=== PATIENT | female | born 1995 | race Caucasian/White ===

== ENCOUNTER → 2017-01-08 | Outpatient (CLI) | payer OTHER ==
[2017-01-11 14:08] LABS: CHLAMYDIA TRACH RNA*** NOT DETECTED (NOT DETECTED); GC (NEIS GONORRHOEAE)RNA** NOT DETECTED (NOT DETECTED)
== END | disposition home or self-care (01) ==
LOC: C.LABBFT 11:37
PROVIDERS: ATTEND Nurse Practitioner
DX: Z00.00 Encounter for general adult medical examination without abnormal findings (principal)

== ENCOUNTER 2017-01-30 11:44 | Emergency (ER) | payer OTHER ==
[~2017-01-30] VITALS: Ht 154.9 cm; Wt 59.1 kg
[2017-01-30 11:49] VITALS: TEMP 36.6; Ht 154.9 cm; Wt 59.1 kg
--- NOTE | 2017-01-30 13:05 | DIAGNOSTIC IMAGING REPORT ---
RIGHT TIBIA/FIBULA 2 VIEWS ROUTINE CLINICAL HISTORY: Right lower leg pain status post trauma COMPARISON: None. DISCUSSION: No fractures or dislocations are visualized. IMPRESSION: No fractures identified. Electronically signed by: Maxwell Daley M.D. 01/30/2017 1:03 PM Dictated Date/Time: 01/30/2017 1:03 PM
--- NOTE | 2017-01-30 13:05 | DIAGNOSTIC IMAGING REPORT ---
RIGHT KNEE 3 VIEWS CLINICAL HISTORY: fall x1 wk; R knee, lower leg, foot pain Right trauma. Pain. COMPARISON: None. DISCUSSION: The bones and joint spaces appear intact. There is no evidence of fracture, dislocation or bony disease. There is no evidence for soft tissue swelling. IMPRESSION: Negative study. The above report was generated using voice recognition software. It may contain grammatical, syntax or spelling errors. Electronically signed by: Bc Ortez M.D. 01/30/2017 1:03 PM Dictated Date/Time: 01/30/2017 1:03 PM
--- NOTE | 2017-01-30 13:06 | DIAGNOSTIC IMAGING REPORT ---
RIGHT FOOT MIN 3 VIEWS ROUTINE CLINICAL HISTORY: 21 years-old Female presenting with fall x1 wk; R knee, lower leg, foot pain Right. TECHNIQUE: Frontal, oblique, and lateral views of the right foot were obtained. COMPARISON: None. FINDINGS: No acute fracture or malalignment. No significant degenerative change. No radiopaque foreign body. Regional soft tissues grossly normal. IMPRESSION: No acute osseous injury of the right foot. Electronically signed by: Giuseppe Chambers M.D. 01/30/2017 1:04 PM Dictated Date/Time: 01/30/2017 1:03 PM
[2017-01-30 13:41] VITALS: BP 125/73; PULSE 68; O2SAT 100
--- NOTE | 2017-01-31 16:21 | EMERGENCY ROOM VISIT NOTE ---
ED Visit Note First contact with patient: 11:54 Chief Complaint: Right knee and lower leg pain. History of Present Illness: Ms. Perales is a 21-year-old white female who ambulates into the ED complaining of right knee pain and right lower leg pain over the lateral aspect. Patient reports approximately one week ago she was walking down her apartments fire escape after at range. She reports that she slipped and fell down 28 stairs injuring her leg when it was trapped between 2 steps. She reports at the time of the fall she was not having any lightheaded or dizziness, she had no loss of consciousness and since the fall she has had no signs of head injury. Currently she is complaining of pain over the lateral aspect of the knee, lower leg and ankle. She describes her pain as a combination of pressure and sharp sensation. She rates her discomfort 5/10 at rest and 7/10 with movement of the knee and weightbearing. She has not identified any alleviating factors related to the pain. She reports that she has been using ibuprofen, heat and ice without relief of her discomfort. Associated with her pain she has noted bruising and swelling over the lateral aspect of the leg and knee. She denies neck pain, back pain, abdominal pain, nausea, vomiting, leg weakness/ numbness/tingling. Additionally he denies any previous significant injuries or surgeries to the right lower leg. Review of Systems: As noted above in history of present illness. 8 body systems were reviewed and found to be negative as noted above. Past Medical History: Patient denies. Current Medications: Patient denies. Allergies to Medications: Amoxicillin. Social History: Patient is currently University student; she feels safe in her home environment; she denies tobacco and alcohol use. Physical Examination: Vital Signs: Date Time Temp Pulse Resp B/P (MAP) Pulse Ox O2 Delivery O2 Flow Rate FiO2 01/30/17 13:41 68 125/73 100 Room Air 01/30/17 11:49 36.6 90 20 151/84 99 Room Air GENERAL: 21-year-old female in mild distress due to pain, nontoxic-appearing, afebrile and hemodynamically stable. NEUROLOGICAL: Awake, alert and oriented to person, place and time. Answering questions appropriately and following commands. Normal gait. Good hand eye coordination. No focal motor or sensory deficits. Cranial nerves II through XII grossly intact. Romberg test negative. Pronator drift test negative. Good short-term and long-term recall. SKIN: Warm, dry and pink. No open soft tissue trauma noted. HEENT: Atraumatic and normocephalic. PERRLA. Sclera white and conjunctiva pink. Speech normal. Trachea midline. No jugular venous distention. BACK: No tenderness over the bony cervical, thoracic and lumbar spine. Full range of motion of the cervical spine. No CVA tenderness. THORAX: Lungs sounds are clear to auscultation and equal bilaterally with symmetrical chest wall. No crepitus, tenderness, subcutaneous air or deformities noted. ABDOMEN: Flat, soft and nontender. Positive bowel sounds in all quadrants. No guarding, rigidity or organomegaly. RIGHT LOWER EXTREMITY: No gross bony deformity. No shortening or malrotation. Starting just superior to the knee and extending down into the mid lower leg patient has a large area that is ecchymotic and mildly swollen. This area is tender to palpation. I do not appreciate any bony deformity or crepitus. No specific tenderness over the lateral joint line. No laxity of the collateral or cruciate ligaments. Decreased range of motion in the knee due to pain. Negative ballottement test. Negative patellar apprehension test. No tenderness to the calf muscles. No tenderness over the anterior tibia and fibula. Full range of motion in plantar flexion and dorsiflexion of the ankle. Do not appreciate any ligamentous laxity of the ankle. There is some mild tenderness over the lateral foot with some mild swelling but no ecchymosis. Throughout the foot was not able to appreciate any bony deformity or crepitus. She was able to toes without difficulty. Throughout the foot the skin was warm and pink and capillary refill is brisk. She is able to distinguish light sensations through all dermatomes of the foot. ED Course: Patient is assessed as noted above. Patient's medication list was reviewed. Patient was offered pain medications and refused. Right Knee X-Rays: Were read by myself and the radiologist showing no acute fractures or dislocations. No evidence of significant soft tissue swelling or joint effusion. Right Tibia/Fibular X-Rays: Were read by myself and the radiologist showing no fractures. Right Foot X-Rays: Were read by myself and the radiologist showing no acute fractures or dislocations. Patient was placed in a knee immobilizer and nonweightbearing crutches. Patient was educated about today's findings and instructed on her treatment plan ; she verbalizes understanding and agreement with this plan. Clinical Impression: Right lower leg contusion. Right knee and foot pain. Status post fall. Disposition: Patient discharged home in stable condition; prior to departure she was reassessed and subjectively reported she was feeling better and rated her discomfort 3/10. Plan: Comfort measures were discussed with the patient including rest, ice, alternating ibuprofen and acetaminophen. Patient was encouraged to follow-up with 13 physician or assistive technology trainer for instructions back to sports activity. Patient is encouraged return ED for worsening/uncontrolled pain, uncontrolled swelling, leg/foot weakness/numbness/tingling or any new/concerning symptoms.
== END 2017-01-30 14:09 | disposition home or self-care (01) ==
LOC: C.EDB 11:45 → C.EDD 14:09
DX: S80.11XA Contusion of right lower leg, initial encounter (principal); M25.561 Pain in right knee; M79.604 Pain in right leg; M79.671 Pain in right foot; W10.9XXA Fall (on) (from) unspecified stairs and steps, initial encounter

== ENCOUNTER 2017-05-23 23:11 | Emergency (ER) | payer OTHER ==
[~2017-05-23] VITALS: Ht 154.9 cm; Wt 58.9 kg
[2017-05-23 23:20] VITALS: Ht 154.9 cm; Wt 58.9 kg
[2017-05-23] MEDS ORDERED: IBUPROFEN 600 MG TAB PO STA (23:27)
[2017-05-23] MEDS ORDERED: PHEN-876 PO (23:30)
[2017-05-23] MEDS ORDERED: SULF800T23 PO (23:30)
[2017-05-23] MEDS ORDERED: PHENAZOPYRIDINE HOME PACK 200 MG VIAL PO ONE (23:30)
[2017-05-23] MEDS ORDERED: SEPTRA DS HOME PACK 1 EA VIAL PO ONE (23:30)
[2017-05-23 23:45] VITALS: BP 144/84; PULSE 103; TEMP 36.9; O2SAT 98
[2017-05-23 23:46] LABS: MANUAL MICROSCOPIC REQUIRED? YES; REVIEW REQ? NO; SULFASALICYLIC ACID POS (NEG); URINE APPEARANCE TURBID (CLEAR); URINE COLOR RED; URINE SPECIFIC GRAVITY 1.027 (1.000-1.030)
[2017-05-23 23:51] LABS: URINE BACTERIA NEG (NEG); URINE RBC >30 /hpf (0-4); URINE WBC >30 /hpf (0-5); ZZUR CULT IF INDIC CLEAN CATCH YES
[2017-05-23 23:52] LABS: PREG INTERNAL NEGATIVE QC NEG CLEAR BACKGROUND; PREG INTERNAL POSITIVE QC POS CONTROL LINE
--- NOTE | 2017-05-24 | EMERGENCY ROOM VISIT NOTE ---
ED Visit Note First contact with patient: 23:23 CHIEF COMPLAINT: Frequent and painful urination HISTORY OF PRESENT ILLNESS: This 21-year-old presents to the emergency department with mother complaining of increased frequency of urination, burning pain with urination, and a feeling of incomplete voiding for 1. The patient passes very small volumes of urine with each episode of voiding. The patient states the pain is radiating up to her left lower abdomen area but no flank pain. They deny back pain, fever, or vaginal discharge. The patient has not frequent urinary tract infections in the past. Patient feels they are not at risk for STIs. REVIEW OF SYSTEMS: A 6 system review of systems was completed with positives and pertinent negatives listed in the HPI. ALLERGIES: Penicillin, Keflex MEDICATIONS: None PMH: Medical Problems: (1) Otitis Status: Resolved (2) Pneumonia Status: Resolved (3) Pyelonephritis Status: Resolved SOCIAL HISTORY: No drug use PHYSICAL EXAM: Vital Signs: Reviewed Nurse's notes, vital signs stable. GENERAL : Pleasant female pacing around the room, in no acute distress, they do not appear toxic, well-developed, well-nourished. SKIN: Capillary reflex less than 2 seconds. HEENT: Normocephalic. PERRLA. EOMI. Nares patent. Mucous membranes moist. Neck is supple without nuchal rigidity. HEART: Regular rate and rhythm without murmurs gallops or rubs. LUNGS: Clear to auscultation bilaterally without wheezes, rales or rhonchi. No retractions or accessory muscle use. ABDOMEN: Positive bowel sounds x 4. Normal tympanic percussion. Soft, tender to palpation over bladder region all other quadrants are nontender, without masses or organomegaly. Alba sign negative. No guarding or rebound tenderness. No CVA tenderness MUSCULOSKELETAL: No gross musculoskeletal defects. NEURO: Patient was alert and oriented to person place and time. Normal sensation to light and sharp touch. No focal neurological deficits. EMERGENCY DEPARTMENT COURSE: I examined the patient. Urine was concerning for infection and sent for culture. The urine was sent for culture and sensitivity. The patient was given Bactrim and Pyridium. Patient had pain radiating up to her left lower quadrant and has a history of pyelonephritis. I did opt to extend her antibiotic course because of this. The patient was discharged home in good condition. DIAGNOSIS: UTI DISCHARGE INSTRUCTIONS & TREATMENT: As below Problem List Medical Problems: (1) Otitis Status: Resolved (2) Pneumonia Status: Resolved (3) Pyelonephritis Status: Resolved Current/Historical Medications Scheduled Phenazopyridine HCl (Pyridium), 200 MG PO TID Sulfa/Trimethoprim (Bactrim Ds 800MG/160MG), 1 TAB PO BID Allergies Coded Allergies: Cephalosporins (Verified Allergy, Unknown, 05/23/17) Penicillins (Verified Allergy, Unknown, 05/23/17) Vital Signs Date Time Temp Pulse Resp B/P (MAP) Pulse Ox O2 Delivery O2 Flow Rate FiO2 05/23/17 23:45 36.9 103 20 144/84 98 05/23/17 23:20 36.9 103 20 144/84 98 Room Air Laboratory Results Test 05/23/17 23:20 Urine Color RED Urine Appearance TURBID (CLEAR) Urine pH (4.5-7.5) Urine Specific [place] 1.027 (1.000-1.030) Urine Protein POS (NEG) Urine Glucose (UA) (NEG) Urine Ketones (NEG) Urine Occult Blood (NEG) Urine Nitrite (NEG) Urine Bilirubin (NEG) Urine Urobilinogen (NEG) Urine Leukocyte Esterase (NEG) Urine RBC >30 /hpf (0-4) Urine WBC >30 /hpf (0-5) Urine Epithelial Cells 0-5 /lpf (0-5) Urine Bacteria NEG (NEG) Urine Test NEG (NEG) Medications Administered Medications (Trade) Dose Ordered Sig/Shon Route Start Time Stop Time Status Last Admin Dose Admin Trimethoprim/ Sulfamethoxazole (Sulfameth/ Trimeth Ds 800/ 160MG Home Pack) 1 homepack UD ONCE PO 05/23/17 23:30 05/23/17 23:31 DC 05/23/17 23:39 1 HOMEPACK Phenazopyridine HCl (Phenazopyridine HCl 200MG Home Pack) 1 homepack UD ONCE PO 05/23/17 23:30 05/23/17 23:31 DC 05/23/17 23:39 1 HOMEPACK Ibuprofen (Motrin Tab) 600 mg NOW STAT PO 05/23/17 23:27 05/23/17 23:28 DC 05/23/17 23:39 600 MG Departure Information Impression Primary Impression: Urinary tract infection Dispostion Home / Self-Care Condition GOOD Prescriptions Phenazopyridine HCl (Pyridium) 200 Mg Tab 200 MG PO TID for 2 Days, #6 TAB Prov: Nara Packer .SAM 05/23/17 Sulfa/Trimethoprim (Bactrim Ds 800MG/160MG) Tab 1 TAB PO BID for 6 Days, #12 TAB Prov: Nara Packer .SAM 05/23/17 Referrals No Doctor, Assigned (PCP) Forms HOME CARE DOCUMENTATION FORM, IMPORTANT VISIT INFORMATION Patient Instructions UTI, [facility] Additional Instructions Trimethoprim-Sulfamethoxazole(Bactrim DS): Take one pill twice daily for 7 days for your urine infection. All antibiotics can cause diarrhea. If this occurs and you feel worse or it does not resolve in 1-2 days follow up with your doctor or return to the Emergency Department as this could be signs of serious underlying problems. Any medication can cause an allergic reaction, stop the pills immediately and return to the ER for rash, hives, breathing difficulties, or swelling. Pyridium 200mg: Take one pill three times daily as needed for urinary discomfort. This medication will turn your urine orange. This is normal and nothing to be concerned about. Ibuprofen(Motrin, Advil) may be used for fever or pain. Use 600mg every six hours as needed. Take with food. Avoid using more than 2400mg in a 24 hour period. Do not use 2400mg per day for more than three consecutive days without physician direction. Prolonged inappropriate use can lead to stomach upset or ulcers. (AND/OR) Acetaminophen(Tylenol) may be used for fever or pain. Use 1000mg every six hours as needed. Avoid using more than 3000mg in a 24 hour period. Rest and drink plenty of fluids as tolerated. Slow sips of water or sports drinks are recommended instead of large amounts all at once. Continue current medications. Once your stomach is settled start with a clear liquid diet (jello, soup broth, etc.) and then advance as tolerated. You should avoid full, heavy meals for about 24 hrs from the time your symptoms resolved. Return to the ER immediately for worsening or persistent abdominal/back pain, vomiting, fevers, worsening of your condition, or as needed. Follow up with your primary physician within 2-3 days for a recheck of the current condition.
--- NOTE | 2017-05-26 11:03 | Pharmacy Progress Note ---
ED Pharmacist Culture FollowUp Date of Service: May 26, 2017. Patient was sent home with a prescription for Bactrim DS BID x 6 days, which should cover the E. coli growing from the patient's urine culture.
== END 2017-05-23 23:45 | disposition home or self-care (01) ==
LOC: C.EDB 23:12
DX: N39.0 Urinary tract infection, site not specified (principal); Z87.01 Personal history of pneumonia (recurrent)

== ENCOUNTER → 2017-11-03 | Outpatient (CLI) | payer OTHER ==
[2017-11-03 12:21] LABS: BASO % 0.2 %; BASO ABS # 0.01 K/uL (0-0.2); EOS % 2.7 %; EOS ABS # 0.15 K/uL (0-0.5); HEMATOCRIT 41.3 % (37-47); HEMOGLOBIN 13.8 g/dL (12.0-16.0); IG# 0.01 K/uL (0.00-0.02); LYMPH % 30.9 %; LYMPH ABS # 1.72 K/uL (1.2-3.4); MEAN CELL VOLUME 86.4 fL (80-100); MEAN CORPUSCULAR HEMOGLOBIN 28.9 pg (25-34); MEAN CORPUSCULAR HGB CONC 33.4 g/dl (32-36); MEAN PLATELET VOLUME 9.2 fL (7.4-10.4); MONO ABS # 0.39 K/uL (0.11-0.59); NEUT ABS # 3.29 K/uL (1.4-6.5); PLATELET COUNT 207 K/uL (130-400); RED CELL DISTRIBUTION WIDTH CV 13.1 % (11.5-14.5); RED CELL DISTRIBUTION WIDTH SD 41.6 fL (36.4-46.3); WHITE BLOOD COUNT 5.57 K/uL (4.8-10.8)
[2017-11-03 12:50] LABS: ALBUMIN 3.7 gm/dl (3.4-5.0); ALKALINE PHOSPHATASE 38 U/L (45-117); ALT/SGPT 21 U/L (12-78); AST/SGOT 14 U/L (15-37); BLOOD UREA NITROGEN 12 mg/dl (7-18); CALCIUM 9.2 mg/dl (8.5-10.1); CARBON DIOXIDE 27 mmol/L (21-32); GLUCOSE 90 mg/dl (70-99); LIPASE 286 U/L (73-393); POTASSIUM 3.7 mmol/L (3.5-5.1); SODIUM 140 mmol/L (136-145); TOTAL PROTEIN 7.7 gm/dl (6.4-8.2)
== END | disposition home or self-care (01) ==
LOC: C.LABBFT 11:05
PROVIDERS: ATTEND Registered Nurse
DX: R10.13 Epigastric pain (principal); R10.11 Right upper quadrant pain